=== PATIENT | female | born 1990 | race Caucasian/White ===

== ENCOUNTER → 2020-07-01 15:58 | Outpatient (CLI) | payer SELFPAY ==
[2020-07-01 18:02] LABS: Free T3 2.7 pg/mL (2.18-3.98); T4 Free Direct 0.93 ng/dL (0.76-1.46); Thyroid Stim Hormone (TSH) 1.88 uIU/mL (0.358-3.74)
== END ==
PROVIDERS: PCP Internal Medicine; Referring Provider Internal Medicine; Visit Provider Internal Medicine
DX: R79.89 Other specified abnormal findings of blood chemistry (principal)
CPT/HCPCS: 36415; 84439; 84443; 84481

== ENCOUNTER → 2021-09-29 | Outpatient (CLI) | payer SELFPAY ==
--- NOTE | 2021-09-29 08:51 | CT_ITS ---
INDICATION: DIARRHEA EXAMINATION: CT ABDOMEN AND PELVIS WITHOUT CONTRAST - CT Abdomen And Pelvis W/O Contrast Injection TECHNIQUE: Helically acquired images were obtained of the abdomen and pelvis without oral or IV contrast. A radiation dose optimization technique was used for this scan. IV Contrast dosage and agent: None. Oral contrast: None. COMPARISON: None. FINDINGS: LOWER CHEST: Lung bases are clear. No cardiomegaly or pericardial effusion. Bilateral breast implants are visualized and are unremarkable. LIVER: Homogeneous. No focal mass. GALLBLADDER AND BILIARY TREE: No calcified gallstones. No gallbladder distension or wall edema. No intra- or extrahepatic biliary ductal dilation. PANCREAS: No focal cystic or solid mass. SPLEEN: Normal size without focal cystic or solid mass. ADRENAL GLANDS: No nodules. KIDNEYS AND URETERS: Normal renal size and position. No hydronephrosis. PERITONEUM: No ascites or free air. No other fluid collection. BOWEL: No evidence of acute appendicitis. No stomach or bowel distension. No focal inflammatory change. Abundance of stool in the large bowel. LYMPH NODES: No enlarged mesenteric or retroperitoneal lymph nodes. VESSELS: Aorta is non-dilated. URINARY BLADDER: Unremarkable. REPRODUCTIVE ORGANS: Retroverted uterus with intrauterine contraceptive device visualized in position. No evidence of stranding of the pelvic fat planes. ABDOMINAL WALL: No discrete abdominal or pelvic wall hernia. BONES: No lytic or blastic abnormality. CT/Abdomen/Pelvis without Cont IMPRESSION: No evidence of acute abdominal/pelvic pathology. Abundance of stool in the large bowel. Electronically Signed: Curtis Kaur MD at 9:23 EDT Reading Location ID and State: [facility] / ID Tel , Service support ,
== END | disposition home or self-care (01) ==
PROVIDERS: PCP Internal Medicine; Referring Provider Internal Medicine; Visit Provider Internal Medicine
DX: R19.7 Diarrhea, unspecified (principal)
CPT/HCPCS: 74176

== ENCOUNTER → 2022-01-05 | Outpatient (CLI) | payer SELFPAY ==
[2022-01-05 14:48] LABS: Erythrocyte Sedimentation Rate 2 mm/hr (0-30)
[2022-01-05 14:50] LABS: Absolute Lymphocyte Count 2.81 X10^3/uL (0.83-4.51); Absolute Neutrophil Count 4.3 X10^3/uL (2.0-7.7); Basophil# 0.07 X10^3/uL; Basophil% 0.9 % (0-1); Eosinophil# 0.13 X10^3/uL; Eosinophils% 1.6 % (0-5); Hematocrit 38.8 % (37-47); Hemoglobin 13.2 g/dL (12.0-15.0); Lymphocyte # 2.81 X10^3/ul (0.83-4.51); Lymphocyte % 35.7 % (19-41); Mean Corpuscular Hgb 30.3 pg (27.0-32.0); Mean Platelet Vol. 10.2 fl (6.2-12.0); Monocyte# 0.53 X10^3/uL; Monocyte% 6.7 % (0-10); NRBC Flagged by Analyzer 0 % (0-5); Neutrophil # 4.32 X10^3/uL (2.7-7.7); Neutrophil % 54.8 % (47-70); Platelet Count 248 K/mm3 (150-450); RBC Distribution Width CV 11.9 % (11.6-14.6); RBC Distribution Width SD 39.1 fl (35.1-43.9); Red Blood Count 4.36 M/mm3 (4.2-5.4); White Blood Count 7.9 K/mm3 (4.4-11.0)
[2022-01-05 15:18] LABS: ALB/GLOB Ratio 1.2 RATIO (0.9-2.4); AST(SGOT) 13 U/L (15-37); Alanine Aminotransfer ALT/SGPT 15 U/L (13-56); Albumin, Serum 4.4 g/dL (3.2-5.0); Alkaline Phosphatase 60 U/L (45-117); Anion Gap 4 (5-15); BUN 10 mg/dL (7-18); BUN/Creat Ratio 15.4 RATIO (10-20); CRP < 2.90 mg/L (0.0-3.0); Calcium,Total 9.2 mg/dL (8.5-10.1); Chloride 106 mmol/L (98-107); Creatinine, Serum 0.65 mg/dL (0.55-1.02); EST Glomerular Filtration Rate 115 mL/min (>60); Est Glom Filt Rate - Afr Amer 139 mL/min (>60); Globulin 3.7 g/dL (2.2-4.2); Glucose 87 mg/dL (74-106); Potassium 3.9 mmol/L (3.5-5.1); Protein, Total 8.1 g/dL (6.4-8.2); Sodium Level 139 mmol/L (136-145)
== END | disposition home or self-care (01) ==
PROVIDERS: PCP Internal Medicine; Visit Provider Internal Medicine Gastroenterology
DX: K51.90 Ulcerative colitis, unspecified, without complications (principal); J45.909 Unspecified asthma, uncomplicated
CPT/HCPCS: 36415; 80053; 80074; 82784; 83516; 85025; 85652; 86140; 86255; 86480

== ENCOUNTER → 2022-04-23 | Outpatient (CLI) | payer OTHER, SELFPAY ==
[2022-04-24 09:39] LABS: Rubella IgG Reactive (Nonreactive)
[2022-04-25 22:07] LABS: HEPATITIS B SURFACE AG Negative (Negative); Hep C Antibodies <0.1 s/co ratio (0.0-0.9); Hepatitis A IgM Antibody Negative (Negative); Hepatitis B Core AB IgM Negative (Negative); QNTFERON TB Mitogen Value > 10.00 IU/mL (.); QNTFERON TB Nil Value 0 IU/mL (.); QNTFERON TB1+ Ag Value 0 IU/mL (.); QNTFERON TB2+ Ag Value 0 IU/mL (.)
[2022-04-26 15:49] LABS: B. pertussis IgG 1.36 index (0.00-0.94); Mumps Antibody, IgM < 0.80 AU (0.00-0.79); QNTIFERON TB Positive Criteria Negative (Negative); V-Zoster IgG (Immunity) 607 index (Immune >165)
== END | disposition home or self-care (01) ==
LOC: LAB 13:44
PROVIDERS: PCP Internal Medicine; Referring Provider Internal Medicine Gastroenterology; Visit Provider Internal Medicine Gastroenterology
DX: K51.90 Ulcerative colitis, unspecified, without complications (principal)
CPT/HCPCS: 36415; 80074; 86480; 86615; 86735; 86762; 86787

== ENCOUNTER → 2022-05-09 | Outpatient (CLI) | payer OTHER, SELFPAY ==
[2022-05-09 15:34] LABS: Absolute Lymphocyte Count 2.68 X10^3/uL (0.83-4.51); Absolute Neutrophil Count 2.7 X10^3/uL (2.0-7.7); Basophil# 0.04 X10^3/uL; Basophil% 0.7 % (0-1); Eosinophil# 0.04 X10^3/uL; Eosinophils% 0.7 % (0-5); Hemoglobin 13.2 g/dL (12.0-15.0); Lymphocyte # 2.68 X10^3/ul (0.83-4.51); Lymphocyte % 46.7 % (19-41); Mean Corp Hgb Conc 34.7 g/dL (32-36); Mean Corpuscular Hgb 30.3 pg (27.0-32.0); Mean Corpuscular Volume 87.4 fL (81-99); Mean Platelet Vol. 10.1 fl (6.2-12.0); Monocyte% 5.2 % (0-10); NRBC Flagged by Analyzer 0 % (0-5); Neutrophil # 2.67 X10^3/uL (2.7-7.7); Neutrophil % 46.5 % (47-70); Platelet Count 206 K/mm3 (150-450); RBC Distribution Width CV 11.9 % (11.6-14.6); RBC Distribution Width SD 38.4 fl (35.1-43.9); Red Blood Count 4.35 M/mm3 (4.2-5.4); White Blood Count 5.7 K/mm3 (4.4-11.0)
[2022-05-09 15:59] LABS: Erythrocyte Sedimentation Rate 2 mm/hr (0-30)
[2022-05-09 16:56] LABS: ALB/GLOB Ratio 1.3 RATIO (0.9-2.4); AST(SGOT) 8 U/L (15-37); Alanine Aminotransfer ALT/SGPT 18 U/L (13-56); Albumin, Serum 4.3 g/dL (3.2-5.0); Alkaline Phosphatase 49 U/L (45-117); Anion Gap 7 (5-15); BUN 7 mg/dL (7-18); BUN/Creat Ratio 9.4 RATIO (10-20); CRP < 2.90 mg/L (0.0-3.0); Calcium,Total 8.6 mg/dL (8.5-10.1); Chloride 105 mmol/L (98-107); Creatinine, Serum 0.75 mg/dL (0.55-1.02); EST Glomerular Filtration Rate 97 mL/min (>60); Est Glom Filt Rate - Afr Amer 118 mL/min (>60); Globulin 3.2 g/dL (2.2-4.2); Glucose 96 mg/dL (74-106); LDH 114 U/L (84-246); Potassium 3.4 mmol/L (3.5-5.1); Protein, Total 7.5 g/dL (6.4-8.2); Sodium Level 139 mmol/L (136-145)
[2022-05-11 14:08] LABS: Anti-Centromere B Ab <0.2 AI (0.0-0.9); Anti-Chromatin <0.2 AI (0.0-0.9); Anti-Jo <0.2 AI (0.0-0.9); Anti-Scleroderma-70 AB <0.2 AI (0.0-0.9); RNP Ab <0.2 AI (0.0-0.9); SJOGREN'S Anti-SS-A test < 0.2 AI (0.0-0.9); SJOGREN'S Anti-SS-B test < 0.2 AI (0.0-0.9); Smith Ab <0.2 AI (0.0-0.9)
[2022-05-11 16:09] LABS: Endomysial Antibody IgA Negative (Negative)
[2022-05-11 18:23] LABS: Anti-dsDNA Ab 1 IU/mL (0-9)
[2022-05-11 18:33] LABS: Immunoglobulin A 104 mg/dL (87-352); t-Transglutaminase IgA <2 U/mL (0-3)
[2022-05-14 13:07] LABS: Albumin 4.7 g/dL (2.9-4.4); Alpha-1-Globulins 0.2 g/dL (0.0-0.4); Alpha-2-Globulins 0.5 g/dL (0.4-1.0); Cytoplasmic Ab (C-ANCA) <1:20 titer (Neg:<1:20); Immunoglobulin A 101 mg/dL (87-352); Immunoglobulin E 6 IU/mL (6-495); Immunoglobulin G 1183 mg/dL (586-1602); Immunoglobulin M 101 mg/dL (26-217); PROEL- TOTAL PROTEIN 7.2 g/dL (6.0-8.5)
[2022-05-14 13:21] LABS: Perinuclear Ab (P-ANCA) <1:20 titer (Neg:<1:20)
== END | disposition home or self-care (01) ==
PROVIDERS: PCP Internal Medicine; Visit Provider Internal Medicine Gastroenterology
DX: K51.90 Ulcerative colitis, unspecified, without complications (principal)
CPT/HCPCS: 36415; 80053; 82784; 82785; 83516; 83615; 84165; 85025; 85652; 86140; 86225; 86235; 86255; 86256; 86334

== ENCOUNTER → 2022-05-10 | Outpatient (CLI) | payer OTHER, SELFPAY ==
[2022-05-15 11:33] LABS: Calprotectin, Stool <16 ug/g (0-120)
== END | disposition home or self-care (01) ==
LOC: LABSPEC 12:39
PROVIDERS: PCP Internal Medicine; Referring Provider Internal Medicine Gastroenterology; Visit Provider Internal Medicine Gastroenterology
DX: K51.90 Ulcerative colitis, unspecified, without complications (principal)
CPT/HCPCS: 83630; 83993

== ENCOUNTER → 2022-06-15 | Outpatient (CLI) | payer OTHER, SELFPAY ==
[2022-06-15 16:14] LABS: ALB/GLOB Ratio 1.3 RATIO (0.9-2.4); AST(SGOT) 11 U/L (15-37); Alanine Aminotransfer ALT/SGPT 17 U/L (13-56); Albumin, Serum 4.4 g/dL (3.2-5.0); Alkaline Phosphatase 50 U/L (45-117); Anion Gap 3 (5-15); BUN 10 mg/dL (7-18); Chloride 106 mmol/L (98-107); Creatinine, Serum 0.67 mg/dL (0.55-1.02); EST Glomerular Filtration Rate 111 mL/min (>60); Est Glom Filt Rate - Afr Amer 134 mL/min (>60); Globulin 3.4 g/dL (2.2-4.2); Glucose 86 mg/dL (74-106); Potassium 3.9 mmol/L (3.5-5.1); Protein, Total 7.8 g/dL (6.4-8.2); Sodium Level 138 mmol/L (136-145)
== END | disposition home or self-care (01) ==
LOC: LAB 14:12
PROVIDERS: PCP Internal Medicine; Referring Provider Internal Medicine Gastroenterology; Visit Provider Internal Medicine Gastroenterology
DX: K51.90 Ulcerative colitis, unspecified, without complications (principal)
CPT/HCPCS: 36415; 80053

== ENCOUNTER → 2022-08-21 | Outpatient (CLI) | payer OTHER, SELFPAY ==
[2022-08-21 10:14] VITALS: BP 119/66; PULSE 102; RESP 16; TEMP 36.2; O2SAT 97; BMI 20.7
[2022-08-21] MEDS: 0.9% NaCl Peripheral Flush Adult/Peds IV (10:30)
[2022-08-21] MEDS: 0.9% NaCl IVPB Med Flush (250 mL) 15 ML IV (10:31)
[2022-08-21 11:55] VITALS: BP 106/68; PULSE 79; RESP 16
== END | disposition home or self-care (01) ==
LOC: MEDOUTP 09:54
PROVIDERS: PCP Internal Medicine; Referring Provider Internal Medicine Gastroenterology; Visit Provider Internal Medicine Gastroenterology
DX: K51.90 Ulcerative colitis, unspecified, without complications (principal)
CPT/HCPCS: 96365; J7050; A4216; J3358

== ENCOUNTER → 2022-12-17 | Outpatient (CLI) | payer OTHER, SELFPAY ==
[2022-12-17 13:17] LABS: Erythrocyte Sedimentation Rate < 1 mm/hr (0-30)
[2022-12-17 13:19] LABS: Absolute Lymphocyte Count 2.49 X10^3/uL (0.83-4.51); Absolute Neutrophil Count 2.4 X10^3/uL (2.0-7.7); Basophil# 0.05 X10^3/uL; Basophil% 0.9 % (0-1); Eosinophil# 0.07 X10^3/uL; Eosinophils% 1.3 % (0-5); Hematocrit 39.4 % (37-47); Hemoglobin 13.3 g/dL (12.0-15.0); Lymphocyte # 2.49 X10^3/ul (0.83-4.51); Mean Corp Hgb Conc 33.8 g/dL (32-36); Mean Corpuscular Hgb 29.7 pg (27.0-32.0); Mean Corpuscular Volume 87.9 fL (81-99); Mean Platelet Vol. 10.6 fl (6.2-12.0); Monocyte% 7.4 % (0-10); NRBC Flagged by Analyzer 0 % (0-5); Neutrophil # 2.38 X10^3/uL (2.7-7.7); Platelet Count 229 K/mm3 (150-450); RBC Distribution Width CV 11.9 % (11.6-14.6); RBC Distribution Width SD 38.3 fl (35.1-43.9); Red Blood Count 4.48 M/mm3 (4.2-5.4); White Blood Count 5.4 K/mm3 (4.4-11.0)
[2022-12-17 13:32] LABS: ALB/GLOB Ratio 1.2 RATIO (0.9-2.4); AST(SGOT) 20 U/L (15-37); Alanine Aminotransfer ALT/SGPT 17 U/L (13-56); Albumin, Serum 4.2 g/dL (3.2-5.0); Alkaline Phosphatase 65 U/L (45-117); Anion Gap 3 (5-15); BUN 9 mg/dL (7-18); BUN/Creat Ratio 13.4 RATIO (10-20); CRP < 2.90 mg/L (0.0-3.0); Calcium,Total 8.9 mg/dL (8.5-10.1); Chloride 109 mmol/L (98-107); Creatinine, Serum 0.67 mg/dL (0.55-1.02); EST Glomerular Filtration Rate 109 mL/min (>60); Est Glom Filt Rate - Afr Amer 132 mL/min (>60); Globulin 3.5 g/dL (2.2-4.2); Glucose 81 mg/dL (74-106); Protein, Total 7.7 g/dL (6.4-8.2); Sodium Level 138 mmol/L (136-145)
== END | disposition home or self-care (01) ==
LOC: LAB 11:55
PROVIDERS: PCP Internal Medicine; Referring Provider Internal Medicine Gastroenterology; Visit Provider Internal Medicine Gastroenterology
DX: K51.90 Ulcerative colitis, unspecified, without complications (principal)
CPT/HCPCS: 36415; 80053; 85025; 85652; 86140

== ENCOUNTER → 2023-01-02 | Outpatient (CLI) | payer OTHER, SELFPAY ==
[2023-01-04 14:10] LABS: Calprotectin, Stool 177 ug/g (0-120)
[2023-01-07 04:06] LABS: Pancreatic Elastase, Fecal 495 (>200)
== END | disposition home or self-care (01) ==
LOC: LABSPEC 11:18
PROVIDERS: PCP Internal Medicine; Referring Provider Internal Medicine Gastroenterology; Visit Provider Internal Medicine Gastroenterology
DX: K51.90 Ulcerative colitis, unspecified, without complications (principal)
CPT/HCPCS: 82653; 83630; 83993

== ENCOUNTER → 2023-04-05 | Outpatient (CLI) | payer OTHER, SELFPAY ==
[2023-04-05 13:24] LABS: Erythrocyte Sedimentation Rate < 1 mm/hr (0-30)
[2023-04-05 13:26] LABS: Absolute Lymphocyte Count 2.86 X10^3/uL (0.83-4.51); Absolute Neutrophil Count 2.4 X10^3/uL (2.0-7.7); Basophil# 0.06 X10^3/uL; Eosinophil# 0.14 X10^3/uL; Eosinophils% 2.4 % (0-5); Hematocrit 40.2 % (37-47); Hemoglobin 13.3 g/dL (12.0-15.0); Lymphocyte # 2.86 X10^3/ul (0.83-4.51); Lymphocyte % 48.5 % (19-41); Mean Corp Hgb Conc 33.1 g/dL (32-36); Mean Corpuscular Volume 87.6 fL (81-99); Mean Platelet Vol. 10.3 fl (6.2-12.0); Monocyte% 6.8 % (0-10); NRBC Flagged by Analyzer 0 % (0-5); Neutrophil # 2.43 X10^3/uL (2.7-7.7); Neutrophil % 41.1 % (47-70); Platelet Count 225 K/mm3 (150-450); RBC Distribution Width CV 11.9 % (11.6-14.6); RBC Distribution Width SD 38.5 fl (35.1-43.9); Red Blood Count 4.59 M/mm3 (4.2-5.4); White Blood Count 5.9 K/mm3 (4.4-11.0)
[2023-04-05 13:47] LABS: ALB/GLOB Ratio 1.2 RATIO (0.9-2.4); AST(SGOT) 11 U/L (15-37); Alanine Aminotransfer ALT/SGPT 22 U/L (13-56); Albumin, Serum 4.3 g/dL (3.2-5.0); Alkaline Phosphatase 58 U/L (45-117); Anion Gap 3 (5-15); BUN 9 mg/dL (7-18); BUN/Creat Ratio 13.5 RATIO (10-20); CRP < 2.90 mg/L (0.0-3.0); Calcium,Total 8.9 mg/dL (8.5-10.1); Chloride 106 mmol/L (98-107); Creatinine, Serum 0.67 mg/dL (0.55-1.02); EST Glomerular Filtration Rate 110 mL/min (>60); Est Glom Filt Rate - Afr Amer 133 mL/min (>60); Globulin 3.5 g/dL (2.2-4.2); Glucose 87 mg/dL (74-106); Protein, Total 7.8 g/dL (6.4-8.2); Sodium Level 137 mmol/L (136-145)
== END | disposition home or self-care (01) ==
PROVIDERS: PCP Internal Medicine; Referring Provider Internal Medicine Gastroenterology; Visit Provider Internal Medicine Gastroenterology
DX: K51.90 Ulcerative colitis, unspecified, without complications (principal)
CPT/HCPCS: 36415; 80053; 85025; 85652; 86140

== ENCOUNTER 2023-10-14 05:29 | Day surgery (SDC) | payer OTHER, SELFPAY ==
[2023-10-14 05:56] VITALS: BP 119/79; PULSE 77; RESP 14; TEMP 36.7; O2SAT 98; BMI 20.5
[2023-10-14] MEDS: Lactated Ringers 1,000 ML 15 ML IV (06:07)
[2023-10-14 06:28] LABS: Internal QC Validated? YES +Cl - CLEAR BKGD; Pregnancy, Urine Negative Negative
--- NOTE | 2023-10-14 06:30 | COLBX_PTH ---
PATIENT: JAYLIN RITTER LOC: EN U#:[id number] AGE/SX: 32/F ROOM: RE10/14/[address]: Dr. Christian Gonsalez DO : 1990 BED: DIS: 10/14/2023 SPEC #: [id number] RECD: 10/14/23 09:53 STATUS: BRIAN REChris #: [id number] RIVER: 10/14/23 06:[address]: Christian Gonsalez DEPT: SURGICAL PATHOLOGY RECD BY: Linda Tam ENTERED: 10/14/23 12:23 SP TYPE: COLON BX OTHR DR: Dr. Sonia Matt DO Tissues: A - Cecum, NOS B - Ascending colon C - Transverse colon D - Descending colon E - Sigmoid colon biopsy F - Rectum, NOS Procedures: Surgery Specimen Level IV HEADER OPERATION: Colonoscopy, biopsy PRE-OP DIAGNOSIS: Ulcerative colitis TISSUE SUBMITTED: A- Cecum biopsy, B- Ascending colon biopsy, C- Transverse colon biopsy, D- Descending colon biopsy, E- Sigmoid colon biopsy, F- Rectum biopsy MICROSCOPIC DIAGNOSIS A. Cecum, biopsy: Fragments of colonic mucosa, no pathologic diagnosis. B. Ascending colon, biopsy: Fragments of colonic mucosa with minimal glandular distortion. Negative for active inflammation. C. Transverse colon, biopsy: Fragments of colonic mucosa with minimal glandular distortion. Negative for active inflammation. D. Descending colon, biopsy: Fragments of colonic mucosa with minimal glandular distortion. Negative for active inflammation. E. Sigmoid colon, biopsy: Fragments of colonic mucosa with focal mild chronic active colitis. See comment. F. Rectum, biopsy: Moderate to marked chronic active colitis. See microscopic description and comment. CEE/ 10/15/23 COMMENT E. Focal minimal glandular distortion and crypt abscesses are noted. F. The findings are consistent with inflammatory bowel disease. Correlation with clinical, endoscopic findings and appropriate follow up are necessary. MICROSCOPIC DESCRIPTION Slides are reviewed. F. The specimen shows fragments of colonic mucosa with moderate to marked acute and chronic inflammatory cells infiltrates in the lamina propria, lymphoid aggregates, glandular distortion, cryptitis and crypt abscesses. Granulomas are not seen. No evidence of dysplasia. GROSS DESCRIPTION A. Received in fixative is one container labeled with the patient's name and designated Cecum biopsy. The specimen consists of multiple irregular fragments of light arcos soft tissue that in aggregate measure 1.0 x 0.2 x 0.2 cm. The specimen is totally submitted in one cassette. B. Received in fixative is one container labeled with the patient's name and designated Ascending colon biopsy. The specimen consists of two irregular fragments of light arcos soft tissue that in aggregate measure 0.5 x 0.2 x 0.2 cm. The specimen is totally submitted in one cassette. C. Received in fixative is one container labeled with the patient's name and designated Transverse colon biopsy. The specimen consists of multiple irregular fragments of light arcos soft tissue that in aggregate measure 1.5 x 0.2 x 0.2 cm. The specimen is totally submitted in one cassette. D. Received in fixative is one container labeled with the patient's name and designated Descending colon biopsy. The specimen consists of two irregular fragments of light arcos soft tissue that in aggregate measure 0.5 x 0.2 x 0.2 cm. The specimen is totally submitted in one cassette. E. Received in fixative is one container labeled with the patient's name and designated Sigmoid colon biopsy. The specimen consists of multiple irregular fragments of light arcos soft tissue that in aggregate measure 1.2 x 0.2 x 0.2 cm. The specimen is totally submitted in one cassette. F. Received in fixative is one container labeled with the patient's name and designated Rectum biopsy. The specimen consists of multiple irregular fragments of light arcos soft tissue that in aggregate measure 1.5 x 0.2 x 0.2 cm. The specimen is totally submitted in one cassette. CEE/ 10/14/23 TC:2 CPT:40690p5
--- NOTE | 2023-10-14 06:38 | PCM.HP.BLA ---
History and Physical Date of Admission: 10/14/23 JAYLIN RITTER, is a 32 F who presents to the office today for Prior workup CT abd/pel 09.29.21 abundance of stool in colon. Colonoscopy 10.30.[address] [facility] [address] Mark Trevizo score 2 proctosigmoid UC. TI appeared normal. *BGI established 01.05.22 with referral from her PCP for colitis. July she began having issues with loose stools with blood, abdominal pain, bloating and renetta colored stools. PCP performed biochemical workup, stool tests and started cipro. She reports testing as normal. Start methotrexate, folic acid and prednisone. ? Biochemical CBC, celiac, hepatitis, CRP, ESR WNL. OV 03.27.22 Continues with methotrexate and is not having any adverse effects at this time. Denies abdominal pain, frequent BM, blood in her stool, gas, bloating, nausea. She will not have health insurance until 04.10.22; she will get bloodwork and stool testing done at this time and treatment will be initiated then. Currently utilizing Mirena control. ? Biochemical DHARMESH comp, CBC, celiac, CMP (AST L8), CRP, ESR, GAME, LDH, TB and immunization titer, hepatitis without pertinent abnormality. pANCA H1:640, MINI H4.7, Bordetella IgG H1.36; IBD suggestive of IBD, not conclusive of disease subtype. Stool calprotectin, lactoferrin WNL Continue methotrexate. Monitor LFT ? Biochemical workup CMP without pertinent abnormality. AST L11. OV 2.3.23 Several days ago she began having intermittent bloody stools with loose consistency and some LLQ/side abd cramping/pain. She has spent a month traveling to [place] and feels the general stress. She is leaving after this apt for [place] for a month. Her is a tracer bullet section supervisor. Stop current therapy; start Stelara. Stelara infusion 08.21.22. OV 10.29.22 Reports infusion and injection both went well; without reaction. Symptoms have improved and continues to have abnormal stools and midabdominal/epigastric stomach pain at night. Notes some food triggers that have been identified and she is practicing avoiding. Prednisone in caused her to feel generally unwell. ? Biochemical 12.17.22 CBC, ESR, CMP, LFT, CRP without pertinent abnormality. ? Stool elastase WNL? Calprotectin H177, lactoferrin + OV 03.11.23 denies loose stools, abdominal pain, vision changes, rashes, joint pain. Feels that a week prior to injection she begins to have loose stools, abdominal pain, reflux, fatigue which will last for approximately a week after injection. ROS Const Constitutional: No fatigue, fever(s), frequent falls, headache(s) or weight change ENT ENT: No headache(s) or difficulty swallowing Cardio Cardiology: No leg pain with exertion Gastro GI: Positive for abdominal pain, bloating, diarrhea, heartburn and Blood in stool; No change in bowel habits, constipation, difficulty swallowing, Vomiting blood/hematemesis, nausea/dyspepsia or vomiting Musc Musculoskeletal: No abnormal gait, joint pain, back pain, joint swelling, muscle cramps, muscle weakness, numbness, stiffness, tingling, Arthritis, sciatica, leg pain at night or leg pain with exertion Skin Skin: No dry skin, lesions, itchy eyes or rash Neuro Neurology: No abnormal gait, dizziness, frequent falls, headache(s), numbness, tingling, tremor(s), Increased tone in limbs, paralysis or seizures Psych Psychiatric: No anxiety, No depression, No paranoia, No Behavioral Problems, No Compulsive Behavior, No hyperactivity, No inattentiveness, No obsessions/compulsions, Positive for Temper Tantrums and No suicidal ideation Endo Endocrine: No fatigue or weight change Aller/Imm Allergy/Immunologic: No itchy eyes [place]/Lymp Hematologic/Lymphatic: No easy bleeding or easy bruising Exam Const General: cooperative and comfortable Nutritional Appearance: average body habitus and well nourished [facility] Head: normal to inspection Ears: hearing grossly normal bilaterally Nose: external nose normal Face and sinus: normal facial exam Mouth: oral mucosae normal Throat: posterior oropharynx normal Eyes General: appearance normal, both eyes and all related structures Neck Neck: normal visual inspection Chest Chest palpation & inspection: normal inspection of the chest and normal palpation of entire chest wall Resp Effort & Inspection: normal respiratory effort Auscultation: Bilateral: Clear to Auscultation Cardio Palpation: normal PMI Rate: regular rate Rhythm: regular rhythm GI Inspection: normal to inspection Auscultation: normal bowel sounds Percussion: normal to percussion Palpation: no hepatosplenomegaly Skin General: no rashes or lesions noted Neuro General: patient alert Extrem General: normal to inspection Psych Affect: normal affect Quality Reporting Tobacco Screening ([facility] 138) Smoking Status: Never smoker Assessment and Plan Assessment and Plan (1) Ulcerative colitis: Status: Chronic Qualifiers: Ulcerative colitis location: ulcerative pancolitis Digestive disease complication type: without complication Qualified Code(s): K51.00 - Ulcerative (chronic) pancolitis without complications Plan: Rectosigmoid ulcerative colitis refractory to mesalamine based therapy. At this time she is not having as severe abdominal pain, diarrhea, lower GI bleeding on methotrexate 12.5 mg q. weekly. She is also folic acid 1 mg daily. She will get lab work in approximately 2 weeks including hepatitis B, if they are pertussis tetanus, QuantiFERON gold for TB, ESR, CRP LFTs and CBC and varicella zoster. The risk and benefits of methotrexate was discussed with the patient. She is on control and it was expressed to her that she cannot get while on methotrexate. She had a little bit of abdominal pain associated with cramping, tenesmus and lower GI bleeding. That has gotten a little bit better. I offered her hydrocortisone enemas or oral hydrocortisone but she says now that she knows what it is she is not as concerned and would like to be started on Stelara therapy. We discussed the risk and benefits of IL 23 inhibitor. After she gets her infusion of Stelara we will slowly titrate off the methotrexate over a 4 to 6-weeks. She has been off of methotrexate Stelara. She is currently getting some breakthrough symptoms prior to her getting her next injection. It takes about a week after that to resolve all of her symptoms. We will get blood work for Stelara antibodies. Stelara levels 1 week prior to her next injection to see what her therapeutic levels are for. She is okay with this plan. Orders: Orders CBC W/Diff, Automated Today K51.90 - Ulcerative colitis, unspecified, without complications Comprehensive Metabolic Profil Today K51.90 - Ulcerative colitis, unspecified, without complications Erythrocyte Sed Rate Today K51.90 - Ulcerative colitis, unspecified, without complications CRP Today K51.90 - Ulcerative colitis, unspecified, without complications Miscellaneous Lab Procedure Today K51.90 - Ulcerative colitis, unspecified, without complications Medications: Discontinued ustekinumab (Stelara) Discontinued Reason: Order Completed (78 mL) Infuse 390mg IV of stelara for Kg 63.2 26 mL 0RF I have examined the patient and the H&P has been reviewed. There are no clinical changes since date of exam.
[2023-10-14 07:05] VITALS: BP 119/79; BP 94/51; PULSE 61; RESP 14; TEMP 36.4; O2SAT 100
[2023-10-14 07:10] VITALS: BP 119/79; BP 87/46; PULSE 72; RESP 16; O2SAT 100
--- NOTE | 2023-10-14 07:12 | OP.CCLET_ITS ---
10/14/2023 Sonia Matt Re : Colonoscopy procedure for Shobha Whatley Dear Shaka This procedure was performed on Saturday, October 14, 2023. My impressions and recommendations are as follows: Impressions : - Moderately active (Trevizo Score 2) ulcerative colitis, unchanged since the last examination. Biopsied. - The examination was otherwise normal on direct and retroflexion views. - The examined portion of the ileum was normal. Recommendations : - Discharge patient to home. - Resume previous diet. - Continue present medications. - Await pathology results. - Repeat colonoscopy in 1 year for surveillance. My findings are described in the full procedure note, which is enclosed. If I can be of further assistance, please feel free to contact me at . Sincerely, Christian Gonsalez, 10/14/2023 7:11:43 AM This report has been signed electronically.
--- NOTE | 2023-10-14 07:12 | OP.COLON_ITS ---
Patient Name: Shobha Whatley Procedure Date: 10/14/2023 6:23 AM Date of : 1990 Age: 32 Procedure: Colonoscopy Indications: Left-sided chronic ulcerative colitis, Follow-up of left-sided chronic ulcerative colitis, Disease activity assessment of left-sided chronic ulcerative colitis, Assess therapeutic response to therapy of left-sided chronic ulcerative colitis Providers: Christian Gonsalez DO Referring MD: Sonia Matt Medicines: Monitored Anesthesia Care Patient Profile: This is a 32 year old female. Refer to note in patient chart for documentation of history and physical. Last Colonoscopy: within the past 3 years. Complications: No immediate complications. Procedure: Pre-Anesthesia Assessment: - Prior to the procedure, a History and Physical was performed, and patient medications and allergies were reviewed. The risks and benefits of the procedure and the sedation options and risks were discussed with the patient. All questions were answered and informed consent was obtained. Patient identification and proposed procedure were verified by the physician in the pre-procedure area. Mental Status Examination: alert and oriented. Airway Examination: normal oropharyngeal airway and neck mobility. Respiratory Examination: clear to auscultation. CV Examination: normal. Prophylactic Antibiotics: The patient does not require prophylactic antibiotics. Prior Anticoagulants: The patient has taken no anticoagulant or antiplatelet agents. ASA Grade Assessment: II - A patient with mild systemic disease. After reviewing the risks and benefits, the patient was deemed in satisfactory condition to undergo the procedure. The anesthesia plan was to use monitored anesthesia care (MAC). Immediately prior to administration of medications, the patient was re-assessed for adequacy to receive sedatives. The heart rate, respiratory rate, oxygen saturations, blood pressure, adequacy of pulmonary ventilation, and response to care were monitored throughout the procedure. The physical status of the patient was re-assessed after the procedure. After I obtained informed consent, the scope was passed under direct vision. Throughout the procedure, the patient's blood pressure, pulse, and oxygen saturations were monitored continuously. The Colonoscope was introduced through the anus and advanced to the cecum, identified by appendiceal orifice and ileocecal valve. The colonoscopy was performed without difficulty. The quality of the bowel preparation was adequate. The terminal ileum, ileocecal valve, appendiceal orifice, and rectum were photographed. Scope In: 6:46:45 AM Scope Withdrawal Time 0 hours 7 minutes 37 seconds Scope Out: 6:59:47 AM Total Procedure Duration Time 0 hours 13 minutes 2 seconds Findings: The perianal and digital rectal examinations were normal. Inflammation was found in a continuous and circumferential pattern from the anus to the rectum. This was graded as Trevizo Score 2 (moderate, with marked erythema, absent vascular pattern, friability, erosions), and when compared to the previous examination, the findings are unchanged. Biopsies were taken with a cold forceps for histology. Verification of patient identification for the specimen was done. Estimated blood loss was minimal. The exam was otherwise without abnormality on direct and retroflexion views. The terminal ileum appeared normal. Impression: - Moderately active (Trevizo Score 2) ulcerative colitis, unchanged since the last examination. Biopsied. - The examination was otherwise normal on direct and retroflexion views. - The examined portion of the ileum was normal. Recommendation: - Discharge patient to home. - Resume previous diet. - Continue present medications. - Await pathology results. - Repeat colonoscopy in 1 year for surveillance. Procedure Code(s): --- Professional --- 76670, Colonoscopy, flexible; with biopsy, single or multiple CPT copyright 2021 [employer]. All rights reserved. The codes documented in this report are preliminary and upon breakfast server review may be revised to meet current compliance requirements. Christian Gonsalez DO 10/14/2023 7:11:43 AM This report has been signed electronically. Number of Addenda: 0 Note Initiated On: 10/14/2023 6:23 AM
[2023-10-14 07:13] VITALS: BP 119/79; BP 98/55; PULSE 65; RESP 16; TEMP 37.1; O2SAT 100
[2023-10-14 07:19] VITALS: BP 119/79
== END 2023-10-14 07:41 | disposition home or self-care (01) ==
LOC: EN 05:29 → AC 05:31
PROVIDERS: Anesthesiology; PCP Internal Medicine; Referring Provider Internal Medicine; Visit Provider Internal Medicine Gastroenterology
PROC: 0DJD8ZZ Inspection of Lower Intestinal Tract, Via Natural or Artificial Opening Endoscopic (ICD-10-PCS; CPT 45378; principal; 2023-10-14 06:25)
DX: K51.00 Ulcerative (chronic) pancolitis without complications (principal); J45.909 Unspecified asthma, uncomplicated; Z79.51 Long term (current) use of inhaled steroids
CPT/HCPCS: 45380; 81025; 88305; J7120; J2405

== ENCOUNTER → 2023-12-17 | Outpatient (CLI) | payer OTHER, SELFPAY ==
[2023-12-17 14:05] LABS: CRP < 2.90 mg/L (0.0-3.0)
[2023-12-17 14:08] LABS: Erythrocyte Sedimentation Rate < 1 mm/hr (0-30)
== END | disposition home or self-care (01) ==
PROVIDERS: PCP Internal Medicine; Referring Provider Internal Medicine Gastroenterology; Visit Provider Internal Medicine Gastroenterology
DX: K51.00 Ulcerative (chronic) pancolitis without complications (principal)
CPT/HCPCS: 36415; 85652; 86140

== ENCOUNTER → 2024-02-12 | Outpatient (CLI) | payer OTHER, SELFPAY ==
--- NOTE | 2024-02-12 13:00 | CT_ITS ---
STUDY: CT MAXILLOFACIAL SINUSES REASON FOR EXAM: Female, 33 years old. Chronic nasal congestion -- CT sinuses/facial bone w/o contrast RADIATION DOSAGE (If Supplied By Facility): CTDIvol = ( 28.14 ) mGy, DLP = ( 760.26 ) mGycm TECHNIQUE: The patient was scanned in a multi detector CT scanner. High resolution axial imaging was performed without the administration of intravenous contrast material. Sagittal and coronal images were reconstructed. Individualized dose optimization techniques were used for this CT. COMPARISON: None. FINDINGS: FRONTAL SINUSES: Normal aeration, without mucosal inflammatory disease. ETHMOIDAL SINUSES: Normal aeration, without mucosal inflammatory disease. MAXILLARY SINUSES: Mucosal thickening along the posterior aspect of the inferior left maxillary sinus. SPHENOIDAL SINUSES: Normal aeration, without mucosal inflammatory disease. There is patency of the bilateral maxillary infundibuli with normal uncinate processes, ethmoid bullae, and hiatus semilunaris. Normal bilateral middle turbinates. Normal bilateral inferior turbinates. There is a left sided nasal septal deviation, but without a nasal septal spur. There is patency of the bilateral nasal airways. The visualized osseous structures are normal. The visualized bilateral orbital contents are normal. CT/Sinus/Facial Bone IMPRESSION: Minimal degree of mucosal thickening along the base of the left maxillary sinus posteriorly. Electronically Signed: Ricardo Tobar MD at 13:53 EDT ,
== END | disposition home or self-care (01) ==
PROVIDERS: PCP Internal Medicine; Referring Provider Internal Medicine; Visit Provider Internal Medicine
DX: R09.81 Nasal congestion (principal)
CPT/HCPCS: 70486

== ENCOUNTER → 2024-05-28 | Outpatient (CLI) | payer OTHER, SELFPAY ==
[2024-05-28 14:27] LABS: Erythrocyte Sedimentation Rate < 1 mm/hr (0-30)
[2024-05-28 15:07] LABS: CRP < 2.90 mg/L (0.0-3.0)
== END | disposition home or self-care (01) ==
PROVIDERS: PCP Internal Medicine; Referring Provider Internal Medicine Gastroenterology; Visit Provider Internal Medicine Gastroenterology
DX: K51.00 Ulcerative (chronic) pancolitis without complications (principal)
CPT/HCPCS: 36415; 85652; 86140

== ENCOUNTER → 2024-06-01 | Outpatient (CLI) | payer OTHER, SELFPAY | END | disposition home or self-care (01) | LOC: LAB 15:08 | PROVIDERS: PCP Internal Medicine; Referring Provider Internal Medicine Gastroenterology; Visit Provider Internal Medicine Gastroenterology | DX: K51.00 Ulcerative (chronic) pancolitis without complications (principal) ==

== ENCOUNTER → 2024-07-01 | Outpatient (CLI) | payer OTHER, SELFPAY ==
[2024-07-01 15:41] LABS: Erythrocyte Sedimentation Rate < 1 mm/hr (0-30)
[2024-07-01 15:59] LABS: CRP < 2.90 mg/L (0.0-3.0)
== END | disposition home or self-care (01) ==
PROVIDERS: PCP Internal Medicine; Referring Provider Internal Medicine Gastroenterology; Visit Provider Internal Medicine Gastroenterology
DX: K51.00 Ulcerative (chronic) pancolitis without complications (principal)
CPT/HCPCS: 36415; 85652; 86140

== ENCOUNTER 2025-05-27 10:45 | Day surgery (SDC) | payer OTHER, SELFPAY ==
[2025-05-20 15:27] LABS: Hematocrit 38.2 % (37-47); Hemoglobin 12.9 g/dL (12.0-15.0); Mean Corp Hgb Conc 33.8 g/dL (32-36); Mean Corpuscular Volume 85.8 fL (81-99); Mean Platelet Vol. 9.9 fl (6.2-12.0); Platelet Count 247 K/mm3 (150-450); RBC Distribution Width CV 12.1 % (11.6-14.6); RBC Distribution Width SD 38.2 fl (35.1-43.9); Red Blood Count 4.45 M/mm3 (4.2-5.4); White Blood Count 7.6 K/mm3 (4.4-11.0)
[2025-05-27] VITALS (8 sets, daily range): BP systolic 102–117; BP diastolic 62–70; PULSE 63–96; RESP 12–16; TEMP 36.6–37.6; O2SAT 100; BMI 20.6
[2025-05-27 11:22] LABS: Internal QC Validated? YES +Cl - CLEAR BKGD; Pregnancy, Urine Negative Negative
[2025-05-27] MEDS: Lactated Ringers 1,000 ML 15 ML IV (11:23)
--- NOTE | 2025-05-27 11:40 | PRE.ANES_ITS ---
ASA Classification* ASA Classification ASA Classification: 2 Assessment & Plan Anesthesia* Anesthesia Assessment Anesthesia Assessment: Discussed sedation and/or anesthesia options, risks, benefits, and alternatives with patient/parents/legal guardian/POA. Questions invited. The patient/parents/legal guardian/POA seems to understand and agrees to proceed with anesthesia plan. Reviewed the physical assessment, medical history, allergy history and patient home medications list prior to surgery/procedure/anesthetic and documented any changes. Performed airway and anesthesia risk assessments. Anesthesia Type Anesthesia Type: General and MAC History Source History Obtained from:: Patient and Chart Anesthesia Focused Assessment* Temperature: 99.6 F Pulse Rate: 89 Blood Pressure: 117/70 Respiratory Rate: 16 Pulse Ox: 100 Oxygen Delivery Method: Room Air Airway Assessment Mouth opens: >3 cm Mallampati Score: II Teeth Condition: Intact Neck Range of motion (ROM): Full ROM Labs Anesthesia Preop lab: CBC WBC, (4.4-11.0) 7.6 K/mm3 05/20/25, 14:51 RBC, (4.2-5.4) 4.45 M/mm3 05/20/25, 14:51 Hgb, (12.0-15.0) 12.9 g/dL 05/20/25, 14:51 Hct, (37-47) 38.2 % 05/20/25, 14:51 Plt Count, (150-450) 247 K/mm3 05/20/25, 14:51 CHEMISTRY Potassium, (3.5-5.1) 4.0 mmol/L 04/05/23, 12:49 Sodium, (136-145) 137 mmol/L 04/05/23, 12:49 BUN, (7-18) 9 mg/dL 04/05/23, 12:49 Creatinine, (0.55-1.02) 0.67 mg/dL 04/05/23, 12:49 Glucose, (74-106) 87 mg/dL 04/05/23, 12:49 TSH, (0.358-3.74) 1.88 uIU/mL 07/01/20, 16:18 COAG Urine Test Negative Negative Today, 11:11 Pre-Assessment Diagnosis/Proposed Procedure Planned Operative Procedure(s): (N/A) Hysteroscopy,Dilation and Curettage, IUD removal and insert Onesimo [id number] Anesthesia History 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 When Was Last Pacemaker Check QUESTION #4 FULL TEXT: You/Your Family Experience fever (hyperthermia) with Anesthesia Last Oral Intake Last Oral intake: Last Oral Intake NPO since 23:00 05/27/25 11:07 Meds taken in AM with sips of No 05/27/25 11:07 water? 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 Female Yes 05/19/25 09:07 HX of Motion Sickness No 05/19/25 09:07 HX of N/V After Surgery No 05/19/25 09:07 Non-Smoker Yes 05/19/25 09:07 Duration of Surgery greater No 05/19/25 09:07 than 60 minutes Number of Risk Factors 2 05/19/25 09:07 PONV Score Moderate Risk 05/19/25 09:07 Height & Weight Height & Weight: Anesthesia: Height & Weight Height 5 ft 9 in 05/27/25 11:07 Weight: 63.3 kg 05/27/25 11:07 Body Mass Index (BMI) 20.6 05/27/25 11:07 Respiratory Assessment Respiratory Assessment - 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 Has anyone observed you stop No 05/19/25 09:07 breathing during sleep? STOP Results Negative 05/19/25 09:07 QUESTION #5 FULL TEXT : Do you snore loudly (louder than talking or can be heard through closed doors)? 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 Specify any problems Hx of Preganancy in last 3 N/A 05/19/25 09:07 Months Nurse Filling Out Transfusion NBUCHER 05/19/25 09:07 & Questions: Date: 05/19/25 05/19/25 09:07 Time: 09:08 05/19/25 09:07 Patient unable to answer at this time (ie. 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 Hx Now No 05/19/25 09:07 Gestational Age (in weeks): EDC: Hx Hx Para Hx Section SAB No 05/19/25 09:07 Does the father of the baby or his family experience fever w Father of the baby Malignant Hypertension history comment Active Medications Active Medications: Current Medications Generic Name Dose Route Start Last Admin Trade Name Freq PRN Reason Stop Dose Admin Lactated Ringer's 1,000 mls @ 15 mls/hr 05/27/25 11:00 05/27/25 11:23 IV 15 mls/hr .Q48H ELSIE Administration PFSH Medical History Wears glasses Wears contact lenses Non-smoker Asthma Abdominal pain Diarrhea Ulcerative colitis Home Medications ?Medication ?Instructions ?Recorded ?Last Taken ?Type levonorgestrel (Mirena) 1 device intrauterine ONCE 0 11/17/21 10/14/23 History albuterol sulfate 90 mcg/actuation 2 puff inhalation Q 6H PRN 01/05/22 Unknown History aerosol inhaler shortness of breath or wheez ing risankizumab-rzaa 360 mg/2.4 mL 360 mg (2.4 mL) subcut Q8W #2.4 mL 11/16/24 Unknown Rx (150 mg/mL) subcut wearable injector (Skyrizi) cholecalciferol (vitamin D3) 50 50 mcg PO QDAY #30 cap s 03/23/25 Unknown Rx mcg (2,000 unit) capsule minoxidil 1.75 mg PO DAILY 03/23/25 Un known History diclofenac sodium 3 % topical gel 1 applic topical BID PRN pain 05/19/25 Unknown History Allergy/AdvReac Type Severity Reaction Status Date / Time NSAIDS (Non-Steroidal AdvReac Diarrhea Verified 05/27/25 11:06 Anti-Inflamma shellfish derived AdvReac Nausea Verified 05/27/25 11:04 Family History Mother Hypertension Asthma Grandmother Lung cancer Grandfather Prostate cancer Hypertension Uncle Asthma Hypertension Surgical History History of nasal septoplasty (~04/2024) History of colonoscopy History of breast augmentation History of knee surgery History of ankle surgery Social History Smoking Status: Never smoker alcohol intake: never substance use type: does not use what type of physical activity do you participate in: walking Review of Systems (Anesthesia) ROS Narrative System reviewed and no additional complaints, except as documented.
[2025-05-27] MEDS: Midazolam 2 MG/2 ML Syringe IV (12:40)
[2025-05-27] MEDS: Lidocaine 1% (5 ml sdv) 5 ML Vial IV (12:44)
[2025-05-27] MEDS: fentaNYL 100 MCG/2 ML Ampul IV (12:51)
[2025-05-27] MEDS: Lidocaine 1% /Epi 1:100 (20ml) 20 ML Vial (13:00)
[2025-05-27] MEDS: Levonorgestrel IUD (Liletta) 1 EACH INTRA-UTER (13:07)
--- NOTE | 2025-05-27 13:18 | DCINST_ITS ---
Discharge Instructions DC O2, CPAP, BIPAP needs Home O2 Discharge instructions: No Dressing / Incision Discharge Activity: May Drive (once you are more than 24 hours out from surgery) and May Shower May resume sexual activity in: 1 week (nothing in vagina) Weight Bearing Status: Weight bearing as tolerated Dressing / Incision Call your doctor if you observe: Fever of 101 or Higher, Using more than 1 pad per hour, Dizziness, Chest pain, Calf discomfort and Uncontrolled pain Follow Up Care Please Follow Up With: Maggy Yeh DO When: 4-6 week IUD check Test Results: Test results from this visit will be discussed in further detail at your follow- up appointment, if applicable. Discharge Plan Admission Primary Reason for Your Visit: surgery Attending Provider: Maggy Yeh Primary Care Provider: Sonia Matt Instructions Patient Instructions: Hysteroscopy Print Language: Portuguese Discharge Orders/Prescriptions Prescriptions: Continued Mirena 20 mcg/24 hours (7 yrs) 52 mg intrauterine device 1 device intrauterine ONCE Rx Instructions: as a single dose albuterol sulfate 90 mcg/actuation HFA aerosol inhaler 2 puff inhalation Q6H PRN (Reason: shortness of breath or wheezing) Patient Comments: INHALE 2 PUFFS BY MOUTH FOUR TIMES DAILY NEEDED minoxidil 1.75 mg PO DAILY cholecalciferol (vitamin D3) 50 mcg (2,000 unit) capsule 50 mcg PO QDAY Qty: 30 3RF diclofenac sodium 3 % gel 1 applic topical BID PRN (Reason: pain) Skyrizi 360 mg/2.4 mL (150 mg/mL) wearable injector 360 mg subcut Q8W Qty: 2.4 6RF Referrals / Follow Up: Sonia Matt DO [Primary Care Provider, Internal Medicine] Disposition Disposition (needs filled in before D/C Order can be placed): Home, Self Care
--- NOTE | 2025-05-27 13:19 | PCM.POST.ANE ---
Anesthesia: Postop Eval I Current Vital Signs Temperature: 97.8 F Pulse Rate: 93 Blood Pressure: 116/70 Respiratory Rate: 12 Pulse Ox: 100 Oxygen Delivery Method: Room Air Assessment Airway patent: Yes Spontaneous unlabored respirations: Yes Mental status: Awake and Calm nausea: No Vomiting: No Anesthesia Complication: No Fluid Hydration Crystalloid volume administer (ml): 700 Total IV fluid infused: 700 Progress Note Anesthesia document: Postop Eval 1 completed: Yes
--- NOTE | 2025-05-27 13:31 | PCM.OPRPT ---
Operative Report (Standard) Operative Information Date of Procedure: 05/27/25 Pre-Operative Diagnosis: IUD in place with lost IUD strings Post-Operative Diagnosis: As above Surgery/Procedure Performed: Hysteroscopic removal of IUD Liletta IUD insertion well logging captain mud analysis: No Type of Anesthesia: MAC RN Documented Start/Stop Times: Operation Date: 05/27/25 12:35 Case Time Into Pre-Op 05/27/25 10:51 Out of Pre-Op 05/27/25 12:26 Anesthesia Start 05/27/25 12:38 Into Room 05/27/25 12:38 Procedure Start 05/27/25 12:57 Procedure End 05/27/25 13:10 Anesthesia End 05/27/25 13:15 Out of Room 05/27/25 13:15 Into Recovery 05/27/25 13:17 Procedure Start Time: 12:57 Procedure Stop Time: 13:10 Select all DRAINS/GRAFTS/IMPLANTS that apply: None Estimated Blood Loss: 10 mL Specimen collected: No Description of surgery: Patient was taken to the operating room where MAC anesthesia was induced and found to be adequate. She was prepped and draped in the dorsal lithotomy position using yellow fin stirrups. A weighted speculum was placed in the vagina to expose the cervix. The anterior lip of the cervix was grasped with a single tooth tenaculum and the cervix was dilated to accommodate the hysteroscope. The hysteroscope was advanced into the uterus, and the uterus was distended with normal saline as distension media. The IUD was noted in the uterus at the fundus. The hysteroscopic graspers were used to grab the IUD strings, and easily remove the IUD intact. The uterus was then sounded to 8 cm in length. The Liletta IUD was placed in usual sterile fashion. The IUD strings were trimmed. The patient was having no bleeding. All instruments were removed from the vagina. A vaginal sweep was performed. Instrument, sponge, sharp counts were correct and the patient was taken to the recovery room in good stable condition. Surgical Findings: Uterus sounded to 8 cm Complications Complications: No Admit VTE Documentation VTE Present on Admission: No VTE Mechan Device Prophylaxis: SCD's
--- NOTE | 2025-05-27 14:47 | POSTOPAN2_ITS ---
Anesthesia Postop Eval I Sum Postop Eval Completion status Anesthesia document: Postop Eval 1 completed: Yes Anesthesia Postop Eval I Summary Anesthesia Postop Eval I Summary: Anesthesia Postop Eval I: Assessment Summary Airway patent Yes 05/27/25 13:20 PROSTHETIC DENTIST.SHOF Spontaneous unlabored Yes 05/27/25 13:20 PROSTHETIC DENTIST.SHOF respirations Mental status Awake,Calm 05/27/25 13:20 PROSTHETIC DENTIST.SHOF nausea No 05/27/25 13:20 PROSTHETIC DENTIST.SHOF Vomiting No 05/27/25 13:20 PROSTHETIC DENTIST.SHOF Anesthesia Postop Eval I: Fluid Summary Crystalloid volume administer 700 05/27/25 13:20 PROSTHETIC DENTIST.SHOF (ml) Colloids volume administered ( ml) Blood Product volume administered (ml) Total IV fluid infused 700 05/27/25 13:20 PROSTHETIC DENTIST.SHOF Anesthesia Postop Eval I: Summary Notes Anesthesia Complication No 05/27/25 13:20 PROSTHETIC DENTIST.SHOF Anesthesia Complication Comment: Post-operative progress note Anesthesia: Postop Eval II Evaluation Mental status: Awake and Calm Pain Level: 1 nausea: No Vomiting: No Complications Anesthesia Complication: No
--- NOTE | 2025-05-27 14:47 | PCM.POSTANE2 ---
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 Spontaneous unlabored Yes 05/27/25 13:20 PROGRAMMER ENGINE[employer]ENTIFIC.SHOF respirations Mental status Awake,Calm 05/27/25 13:20 PROGRAMMER ENGINE[employer].SHOF nausea No 05/27/25 13:20 PROGRAMMER ENGINE[employer]ING [employer].SHOF Vomiting No 05/27/25 13:20 PROGRAMMER ENGINE[employer]ING [employer].SHOF Anesthesia Postop Eval I: Fluid Summary Crystalloid volume administer 700 05/27/25 13:20 PROGRAMMER [employer].SHOF (ml) Colloids volume administered ( ml) Blood Product volume administered (ml) Total IV fluid infused 700 05/27/25 13:20 PROGRAMMER ENGINE[employer]ING [employer]IFIC.SHOF Anesthesia Postop Eval I: Summary Notes Anesthesia Complication No 05/27/25 13:20 PROGRAMMER ENGINE[employer]ING [employer] SCIENTIFIC.SHOF Anesthesia Complication Comment: Post-operative progress note Anesthesia: Postop Eval II Evaluation Mental status: Awake and Calm Pain Level: 1 nausea: No Vomiting: No Complications Anesthesia Complication: No
== END 2025-05-27 14:04 | disposition home or self-care (01) ==
LOC: SDC 10:47 → AC 10:48
PROVIDERS: PCP Internal Medicine; Referring Provider Obstetrics & Gynecology; Visit Provider Obstetrics & Gynecology
PROC: 0UDB8ZZ Extraction of Endometrium, Via Natural or Artificial Opening Endoscopic (ICD-10-PCS; CPT 58558; principal; 2025-05-27 12:25)
DX: Z30.433 Encounter for removal and reinsertion of intrauterine contraceptive device (principal); K51.90 Ulcerative colitis, unspecified, without complications; J45.909 Unspecified asthma, uncomplicated; Z79.899 Other long term (current) drug therapy
CPT/HCPCS: 58579; 58300; 00940; 36415; 81025; 85027; 86850; 86900; 86901

== ENCOUNTER → 2025-06-07 | Outpatient (CLI) | payer OTHER, SELFPAY ==
[2025-06-07 15:08] LABS: Color, Urine Yellow (Yellow); Glucose, Dipstick Normal (Normal); Ketone-Dipstick Negative (Negative); Leukocyte Esterase-Dipstick Negative /ul (Negative); Nitrite-Dipstick Negative (Negative); Occult Blood-Urine 10 /ul (Negative); Protein-Dipstick 15 mg/dl (Negative); Specific Gravity, Urine 1.015 (1.002-1.030); Urine Bilirubin Dipstick Negative (Negative)
[2025-06-07 15:11] LABS: Hematocrit 39.6 % (37-47); Hemoglobin 13.3 g/dL (12.0-15.0); Immature Granulocytes Count 0.020 X10^3/uL (0.0-0.0); Mean Corp Hgb Conc 33.6 g/dL (32-36); Mean Corpuscular Volume 86.7 fL (81-99); Mean Platelet Vol. 11.0 fl (6.2-12.0); NRBC Flagged by Analyzer 0 % (0-5); Platelet Count 225 K/mm3 (150-450); RBC Distribution Width CV 12.2 % (11.6-14.6); RBC Distribution Width SD 38.7 fl (35.1-43.9); Red Blood Count 4.57 M/mm3 (4.2-5.4); White Blood Count 6.8 K/mm3 (4.4-11.0)
[2025-06-07 15:16] LABS: Mucous, Urine 1+ /hpf (<or=2+)
[2025-06-07 15:17] LABS: Red Blood Cells-Urine 0-5 SEEN /hpf (0-5); Squamous Epithelial Cells - UA 5-10 SEEN /hpf (5-10)
[2025-06-07 15:19] LABS: Creatinine, Urine (random) 206.00 mg/dL (28.00-217.00); Microalbumin,Random Urine < 12.0 mg/L (<20 mg/L)
[2025-06-07 15:28] LABS: AST(SGOT) 14 U/L (<=31); Alanine Aminotransfer ALT/SGPT 11 U/L (<=34); Albumin, Serum 4.7 g/dL (3.5-5.0); Alkaline Phosphatase 75 U/L (35-104); Anion Gap 9 (7-18); BUN 9 mg/dL (4-19); BUN/Creat Ratio 15.1 RATIO (10-20); Calcium,Total 9.5 mg/dL (7.6-11.0); Carbon Dioxide 29.2 mmol/L (20.0-29.0); Chloride 101 mmol/L (96-106); Globulin 2.6 g/dL (2.2-4.2); Glucose 84 mg/dL (70-99); Potassium 3.9 mmol/L (3.5-5.1)
== END | disposition home or self-care (01) ==
LOC: LABSPEC 11:32
PROVIDERS: PCP Internal Medicine; Referring Provider Internal Medicine; Visit Provider Internal Medicine
DX: K51.90 Ulcerative colitis, unspecified, without complications (principal)
CPT/HCPCS: 80053; 81001; 82043; 82570; 85025; 87086; 87088